=== PATIENT | female | born 1955 ===

== ENCOUNTER 2023-12-09 13:34 | Outpatient (CLI) | payer MEDICARE, OTHER ==
--- NOTE | 2023-12-09 15:07 | CT Report ---
PROCEDURE: CT heart coronary calcium scoring without contrast TECHNIQUE: MDCT non-contrast cardiac gated images were obtained from the dot through the inferior margin of the heart. Calcium score was obtained by post-processing with external software. Automated exposure control was used to reduce patient radiation dose. INDICATION: CAD screening, low or intermediate risk COMPARISON: None FINDINGS: Image quality: Diagnostic Agatston method: Total calcium score: 0.9 L main: 0.9 LAD: 0 LCX: 0 RCA: 0 Heart findings: Mitral annular calcifications: No significant calcifications. Aortic valve: There are mild annular calcifications Chambers: No significant enlargement on this non-dynamic study. Pericardium: Trace effusion versus thickening Other findings (note the chest is incompletely imaged on this limited non-contrast study): Lungs and pleura: Scattered scarring and atelectasis. No significant pulmonary nodules in the partial ly visualized lungs Mediastinum: No pathologic lymphadenopathy. Upper abdomen: Cholecystectomy clips partially seen. Bones: Degenerative changes IMPRESSION: Coronary calcium scores as above. Incidentals: None significant. Coronary artery calcium scores have been identified as an independent risk factor for future acute co ronary syndromes and correlate with the quantity of coronary atherosclerotic plaque. However, they do not correlate directly with the degree of stenosis. A low score does not exclude a significant coron matteo artery stenosis. Risk of future coronary events should be assessed with individual patient risk factors and medical hi story. Consider correlation with risk percentiles using the VERDUZCO (Multi-Ethnic Study of Atheroscleros is) calculator. CAC-DRS Categories: A0: 0, very low risk, consider repeat coronary calcium study every 3-7 years for surveillance. A1: 1-99, mildly increased risk, consider moderate-intensity statin A2: 100-299: moderately increased risk, consider moderate to high-intensity statin + ASA 81mg A3: >300: moderately to severely increased risk, consider high-intensity statin + ASA 81mg Reviewed by: Shahriar Garza MD on 12/09/2023 3:06 PM PDT Approved by: Shahriar Garza MD on 12/09/2023 3:06 PM PDT Station ID: [id number]
== END 2023-12-09 13:35 | disposition home or self-care (01) ==
LOC: DI 13:34
PROVIDERS: ATTEND Specialist
DX: I95.9 Hypotension, unspecified (principal); Z82.49 Family history of ischemic heart disease and other diseases of the circulatory system